=== PATIENT | male | born 1945 | race Hispanic/Latino ===

== ENCOUNTER 2022-09-05 12:35 | Inpatient (IN) | payer OTHER, MEDICARE ==
[2022-09-05] MEDS ORDERED: fentaNYL 50 mcg/mL 1 mL Vial ONE (13:00)
[2022-09-05 14:51] LABS: #Monocytes 0.8 thou/uL (0.11-0.59); #Neutrophils 13.9 thou/uL (1.40-6.50); %Eosinophils 0.3 % (0.0-10.0); %Lymphocytes 6.5 % (21.0-51.0); %Monocytes 5.1 % (0.0-10.0); %Neutrophils 88.2 % (42.0-75.0); Hemoglobin 12.4 g/dL (14.0-18.0); Mean Corpuscular Hemoglobin 31.7 pg (27.0-31.0); Mean Corpuscular Volume 95.8 fl (78.0-98.0); Mean Platelet Volume 8.3 fL (7.4-10.4); Platelet Count 224 10x3/uL (130-400); RBC Distribution Width 12.2 % (11.5-14.5); Red Blood Cell (RBC) Count 3.92 mill/uL (4.70-6.10); White Blood Cell (WBC) Count 15.7 10x3/uL (4.8-10.8)
[2022-09-05 14:56] LABS: Anion Gap 15 mmol/L (10-20); BUN (Urea Nitrogen) 16 mg/dL (8.4-25.7); Calc. Creatinine Clearance 0 mL/min (70-130); Calcium 9.1 mg/dL (7.8-10.44); Carbon Dioxide 22 mmol/L (23-31); Chloride 105 mmol/L (98-107); Estimated GFR 77; Glucose 229 mg/dL (83-110); Potassium 4.1 mmol/L (3.5-5.1); Sodium 138 mmol/L (136-145)
[2022-09-05] MEDS ORDERED: Dextrose 50% Abboject 50 ML SYRINGE SLOW IVP PRN (16:05)
[2022-09-05] MEDS ORDERED: Ondansetron PF 4 MG/2 ML Vial IVP PRN (16:05)
[2022-09-05] MEDS ORDERED: Ipratropium/Albuterol 3 ML NEB NEB PRN (16:05)
[2022-09-05] MEDS ORDERED: Dextrose 5% in Water 1,000 ML IV PRN (16:05)
[2022-09-05] MEDS ORDERED: CEFAZOLIN 2 GM in Sodium Chloride 0.9% 100 ML IVPB SCH (16:15)
[2022-09-05] MEDS ORDERED: traMADol HCl 50 MG TAB PO PRN (16:37)
[2022-09-05 18:08] VITALS: BMI 23.0
[2022-09-05] MEDS: Cyclobenzaprine 10 MG TAB PO PRN (18:11)
[2022-09-05] MEDS: Sodium Chloride 0.9% 1,000 ML IV SCH (18:11)
[2022-09-05] MEDS: traMADol HCl 50 MG TAB PO SCH ×2 (18:11→23:17)
[2022-09-05] MEDS: Insulin Glargine 30 UNITS/0.3 ML VIAL SC SCH (21:17)
[2022-09-05] MEDS: Famotidine/PF 20 mg/2ml Vial SLOW IVP SCH (21:17)
[2022-09-05] MEDS: Senokot S 8.6-50 MG TAB PO SCH (21:17)
[2022-09-05] MEDS: Acetaminophen 325 MG TAB PO SCH (23:17)
[2022-09-06] MEDS: Sodium Chloride 0.9% 1,000 ML IV SCH (01:15)
[2022-09-06] MEDS: traMADol HCl 50 MG TAB PO SCH ×2 (05:46→11:38)
[2022-09-06] MEDS: Acetaminophen 325 MG TAB PO SCH ×4 (05:46→23:30)
[2022-09-06 08:01] LABS: #Lymphocytes 2.2 thou/uL (1.20-3.40); #Monocytes 1.1 thou/uL (0.11-0.59); #Neutrophils 8.7 thou/uL (1.40-6.50); %Basophils 0.4 % (0.0-1.0); %Eosinophils 0.2 % (0.0-10.0); %Lymphocytes 18.4 % (21.0-51.0); %Monocytes 8.8 % (0.0-10.0); %Neutrophils 72.2 % (42.0-75.0); Hemoglobin 10.3 g/dL (14.0-18.0); Mean Corpuscular HGB CONC 31.6 g/dL (32.0-36.0); Mean Corpuscular Hemoglobin 30.8 pg (27.0-31.0); Mean Corpuscular Volume 97.2 fl (78.0-98.0); Platelet Count 206 10x3/uL (130-400); RBC Distribution Width 12.3 % (11.5-14.5); Red Blood Cell (RBC) Count 3.34 mill/uL (4.70-6.10)
[2022-09-06 08:17] LABS: INR-International Normal Ratio 1.1; PTT 27.5 sec (22.9-36.1); Prothrombin Time 15.1 sec (12.0-14.7)
[2022-09-06 08:20] LABS: Phosphorus 2.9 mg/dL (2.3-4.7)
[2022-09-06 08:22] LABS: Anion Gap 13 mmol/L (10-20); BUN (Urea Nitrogen) 16 mg/dL (8.4-25.7); Calc. Creatinine Clearance 78 mL/min (70-130); Calcium 8.8 mg/dL (7.8-10.44); Carbon Dioxide 20 mmol/L (23-31); Chloride 107 mmol/L (98-107); Estimated GFR 90; Glucose 172 mg/dL (83-110); Magnesium 1.9 mg/dL (1.6-2.6); Potassium 3.9 mmol/L (3.5-5.1); Sodium 136 mmol/L (136-145)
[2022-09-06] MEDS: Famotidine/PF 20 mg/2ml Vial SLOW IVP SCH ×2 (08:47→21:41)
[2022-09-06] MEDS: hydrALAZINE 20 MG/ML VIAL SLOW IVP PRN (08:47)
[2022-09-06] MEDS: Multivitamin W/ Minerals 1 TAB PO SCH (08:53)
[2022-09-06] MEDS: Lisinopril 10 MG TAB PO SCH ×2 (08:53→21:42)
[2022-09-06] MEDS: Insulin Glargine 30 UNITS/0.3 ML VIAL SC SCH ×2 (08:53→21:41)
[2022-09-06] MEDS: Polyethylene Glycol 3350 17 GM Packet PO SCH (08:53)
[2022-09-06] MEDS: Senokot S 8.6-50 MG TAB PO SCH ×2 (08:53→21:41)
[2022-09-06] MEDS ORDERED: Acetaminophen/Codeine 30-300mg Tablet PO PRN ×2 (09:39→12:06)
[2022-09-06] MEDS ORDERED: Sodium Chloride 0.9% 100 ML ONE (12:47)
[2022-09-06] MEDS ORDERED: CEFAZOLIN 2 GM VIAL ONE (12:47)
[2022-09-06] MEDS ORDERED: fentaNYL PF 100 MCG/2 ML SYRINGE ONE (13:54)
[2022-09-06] MEDS ORDERED: Dexamethasone 20 MG/5 ML VIAL ONE (14:05)
[2022-09-06] MEDS ORDERED: Lidocaine 1% PF 5 ML VIAL ONE (14:05)
[2022-09-06] MEDS ORDERED: Esmolol 100 MG/10 ML VIAL ONE (14:05)
[2022-09-06] MEDS ORDERED: Rocuronium Bromide 10 MG/ML (10ML VIAL) ONE (14:05)
[2022-09-06] MEDS ORDERED: PROPOFOL 200 MG/20 ML VIAL ONE (14:05)
[2022-09-06] MEDS ORDERED: Ondansetron PF 4 MG/2 ML Vial ONE (14:05)
[2022-09-06] MEDS ORDERED: SUGAMMADEX SODIUM 200 MG/2 ML VIAL ONE (14:38)
[2022-09-06] MEDS ORDERED: Ketorolac Tromethamine 30 MG/ML VIAL IVP PRN (14:42)
[2022-09-06] MEDS ORDERED: Promethazine HCl 25 MG/ML VIAL IM PRN (14:42)
[2022-09-06] MEDS ORDERED: Ondansetron HCl/PF 4 MG/2 ML Vial IVP PRN (14:42)
[2022-09-06] MEDS ORDERED: HYDROmorphone 2 MG/ML VIAL SLOW IVP PRN (14:42)
[2022-09-06] MEDS ORDERED: Meperidine HCl/PF 25 MG/ML VIAL SLOW IVP PRN (14:42)
[2022-09-06] MEDS ORDERED: HYDROmorphone 0.5 MG/0.5 ML SYRINGE ONE (15:07)
[2022-09-06] MEDS: Insulin Regular 300 UNITS/3 ML VIAL SC PRN ×2 (17:43→21:48)
[2022-09-06] MEDS: Acetaminophen/Codeine 30-300mg Tablet PO SCH ×2 (17:44→23:30)
[2022-09-06] MEDS ORDERED: Acetaminophen 500 MG TAB PO SCH ×2 (18:00)
[2022-09-06] MEDS: Cyclobenzaprine 10 MG TAB PO PRN (21:39)
[2022-09-06] MEDS: Clindamycin/D5W 900 MG in Premix Bag 1 BAG IVPB SCH (21:42)
[2022-09-06 21:50] LABS: Glucose 239 mg/dL (83-110)
[2022-09-07] MEDS: Clindamycin/D5W 900 MG in Premix Bag 1 BAG IVPB SCH (05:37)
[2022-09-07] MEDS: Acetaminophen 325 MG TAB PO SCH ×4 (05:37→23:25)
[2022-09-07] MEDS: Acetaminophen/Codeine 30-300mg Tablet PO SCH ×4 (05:38→23:24)
[2022-09-07 06:21] LABS: #Lymphocytes 2.1 thou/uL (1.20-3.40); #Monocytes 1.1 thou/uL (0.11-0.59); #Neutrophils 10.6 thou/uL (1.40-6.50); %Basophils 0.1 % (0.0-1.0); %Eosinophils 0.1 % (0.0-10.0); %Lymphocytes 14.9 % (21.0-51.0); %Monocytes 8.3 % (0.0-10.0); %Neutrophils 76.7 % (42.0-75.0); Hemoglobin 9.8 g/dL (14.0-18.0); Mean Corpuscular Hemoglobin 31.6 pg (27.0-31.0); Mean Platelet Volume 8.2 fL (7.4-10.4); Platelet Count 187 10x3/uL (130-400); RBC Distribution Width 12.5 % (11.5-14.5); Red Blood Cell (RBC) Count 3.09 mill/uL (4.70-6.10); White Blood Cell (WBC) Count 13.8 10x3/uL (4.8-10.8)
[2022-09-07 06:48] LABS: Anion Gap 15 mmol/L (10-20); BUN (Urea Nitrogen) 9 mg/dL (8.4-25.7); Calc. Creatinine Clearance 77 mL/min (70-130); Calcium 9.2 mg/dL (7.8-10.44); Carbon Dioxide 20 mmol/L (23-31); Chloride 105 mmol/L (98-107); Estimated GFR 89; Glucose 152 mg/dL (83-110); Phosphorus 3.2 mg/dL (2.3-4.7); Sodium 136 mmol/L (136-145)
[2022-09-07] MEDS ORDERED: Ferrous Sulfate 325 MG TAB PO SCH (08:00)
[2022-09-07] MEDS ORDERED: Morphine 2 MG/ML VIAL SLOW IVP PRN (09:31)
[2022-09-07] MEDS: Insulin Glargine 30 UNITS/0.3 ML VIAL SC SCH ×2 (09:40→21:22)
[2022-09-07] MEDS: Lisinopril 10 MG TAB PO SCH ×2 (09:42→21:17)
[2022-09-07] MEDS: Polyethylene Glycol 3350 17 GM Packet PO SCH (09:42)
[2022-09-07] MEDS: Aspirin 81 mg Enteric Coated Tablet PO SCH (09:44)
[2022-09-07] MEDS: Senokot S 8.6-50 MG TAB PO SCH ×2 (09:44→21:17)
[2022-09-07] MEDS: Ascorbic Acid 500 mg Chewable Tablet PO SCH ×2 (09:44→21:16)
[2022-09-07] MEDS: Famotidine 20 MG TAB PO SCH ×2 (09:44→21:17)
[2022-09-07] MEDS: Multivitamin W/ Minerals 1 TAB PO SCH (09:44)
[2022-09-07] MEDS: Ferrous Sulfate 325 MG TAB PO SCH ×2 (09:44→21:17)
[2022-09-07] MEDS ORDERED: Ketorolac Tromethamine 30 MG/ML VIAL IVP SCH (09:45)
[2022-09-07] MEDS: Insulin Regular 300 UNITS/3 ML VIAL SC PRN ×3 (12:50→21:22)
[2022-09-07] MEDS: Gabapentin 100 MG CAP PO SCH ×2 (15:34→21:17)
[2022-09-07] MEDS: Ketorolac Tromethamine 30 MG/ML VIAL IVP SCH ×2 (15:37→21:23)
[2022-09-08] MEDS: Acetaminophen/Codeine 30-300mg Tablet PO SCH ×4 (05:04→23:08)
[2022-09-08] MEDS: Ketorolac Tromethamine 30 MG/ML VIAL IVP SCH ×4 (05:04→20:41)
[2022-09-08] MEDS: Acetaminophen 325 MG TAB PO SCH ×4 (05:05→23:09)
[2022-09-08] MEDS: Insulin Regular 300 UNITS/3 ML VIAL SC PRN ×2 (05:15→15:15)
[2022-09-08 07:04] LABS: #Eosinphils 0.1 thou/uL (0.0-0.7); #Lymphocytes 1.4 thou/uL (1.20-3.40); #Monocytes 0.7 thou/uL (0.11-0.59); #Neutrophils 6.4 thou/uL (1.40-6.50); %Basophils 0.4 % (0.0-1.0); %Eosinophils 1.7 % (0.0-10.0); %Lymphocytes 16.5 % (21.0-51.0); %Monocytes 7.8 % (0.0-10.0); %Neutrophils 73.6 % (42.0-75.0); Hemoglobin 8.7 g/dL (14.0-18.0); Mean Corpuscular HGB CONC 34.4 g/dL (32.0-36.0); Mean Corpuscular Hemoglobin 33.9 pg (27.0-31.0); Mean Corpuscular Volume 98.6 fl (78.0-98.0); Mean Platelet Volume 8.4 fL (7.4-10.4); Platelet Count 150 10x3/uL (130-400); RBC Distribution Width 12.7 % (11.5-14.5); Red Blood Cell (RBC) Count 2.56 mill/uL (4.70-6.10); White Blood Cell (WBC) Count 8.6 10x3/uL (4.8-10.8)
[2022-09-08] MEDS: Gabapentin 100 MG CAP PO SCH ×3 (09:15→20:40)
[2022-09-08] MEDS: Lisinopril 10 MG TAB PO SCH ×2 (09:22→20:39)
[2022-09-08] MEDS: Senokot S 8.6-50 MG TAB PO SCH ×2 (09:22→20:40)
[2022-09-08] MEDS: Famotidine 20 MG TAB PO SCH ×2 (09:23→20:42)
[2022-09-08] MEDS: Insulin Glargine 30 UNITS/0.3 ML VIAL SC SCH ×2 (09:23→20:38)
[2022-09-08] MEDS: Ferrous Sulfate 325 MG TAB PO SCH ×2 (09:23→20:39)
[2022-09-08] MEDS: Multivitamin W/ Minerals 1 TAB PO SCH (09:23)
[2022-09-08] MEDS: Aspirin 81 mg Enteric Coated Tablet PO SCH (09:23)
[2022-09-08] MEDS: Ascorbic Acid 500 mg Chewable Tablet PO SCH ×2 (09:23→20:38)
[2022-09-08] MEDS: Polyethylene Glycol 3350 17 GM Packet PO SCH (09:28)
[2022-09-09] MEDS: hydrALAZINE 20 MG/ML VIAL SLOW IVP PRN (04:12)
[2022-09-09] MEDS: Cyclobenzaprine 10 MG TAB PO PRN (05:44)
[2022-09-09] MEDS: Acetaminophen/Codeine 30-300mg Tablet PO SCH ×3 (05:44→18:26)
[2022-09-09] MEDS: Acetaminophen 325 MG TAB PO SCH ×3 (05:45→18:27)
[2022-09-09] MEDS: Ketorolac Tromethamine 30 MG/ML VIAL IVP SCH ×2 (05:45→08:59)
[2022-09-09] MEDS: Insulin Regular 300 UNITS/3 ML VIAL SC PRN ×4 (07:10→21:12)
[2022-09-09] MEDS: Senokot S 8.6-50 MG TAB PO SCH ×2 (08:58→21:02)
[2022-09-09] MEDS: Ascorbic Acid 500 mg Chewable Tablet PO SCH ×2 (08:58→20:57)
[2022-09-09] MEDS: Aspirin 81 mg Enteric Coated Tablet PO SCH (08:58)
[2022-09-09] MEDS: Ferrous Sulfate 325 MG TAB PO SCH ×2 (08:58→21:01)
[2022-09-09] MEDS: Multivitamin W/ Minerals 1 TAB PO SCH (08:58)
[2022-09-09] MEDS: Clopidogrel Bisulfate 75 MG TAB PO SCH (08:59)
[2022-09-09] MEDS: Lisinopril 20 MG TAB PO SCH ×2 (08:59→20:58)
[2022-09-09] MEDS: Polyethylene Glycol 3350 17 GM Packet PO SCH (08:59)
[2022-09-09] MEDS: Insulin Glargine 30 UNITS/0.3 ML VIAL SC SCH ×2 (09:00→20:57)
[2022-09-09] MEDS: Gabapentin 100 MG CAP PO SCH ×3 (09:01→20:57)
[2022-09-09] MEDS: Famotidine 20 MG TAB PO SCH ×3 (09:01→20:58)
[2022-09-09] MEDS: Atorvastatin Calcium 10 MG TAB PO SCH (20:57)
[2022-09-10] MEDS: Acetaminophen/Codeine 30-300mg Tablet PO SCH ×5 (00:14→23:16)
[2022-09-10] MEDS: Acetaminophen 325 MG TAB PO SCH ×5 (00:14→23:16)
[2022-09-10] MEDS: Insulin Regular 300 UNITS/3 ML VIAL SC PRN ×3 (06:10→21:02)
[2022-09-10] MEDS: Cyclobenzaprine 10 MG TAB PO PRN (06:10)
[2022-09-10] MEDS: Clopidogrel Bisulfate 75 MG TAB PO SCH (08:37)
[2022-09-10] MEDS: Ferrous Sulfate 325 MG TAB PO SCH ×2 (08:37→20:58)
[2022-09-10] MEDS: Lisinopril 20 MG TAB PO SCH ×2 (08:37→21:01)
[2022-09-10] MEDS: Polyethylene Glycol 3350 17 GM Packet PO SCH (08:37)
[2022-09-10] MEDS: Ascorbic Acid 500 mg Chewable Tablet PO SCH ×2 (08:37→20:57)
[2022-09-10] MEDS: Senokot S 8.6-50 MG TAB PO SCH ×3 (08:37→22:17)
[2022-09-10] MEDS: Multivitamin W/ Minerals 1 TAB PO SCH (08:37)
[2022-09-10] MEDS: Famotidine 20 MG TAB PO SCH ×2 (08:37→20:58)
[2022-09-10] MEDS: Aspirin 81 mg Enteric Coated Tablet PO SCH (08:37)
[2022-09-10] MEDS: Gabapentin 100 MG CAP PO SCH ×3 (08:38→20:58)
[2022-09-10] MEDS: Insulin Glargine 30 UNITS/0.3 ML VIAL SC SCH ×2 (08:38→21:01)
[2022-09-10] MEDS: metFORMIN 500 MG TAB PO SCH (17:36)
[2022-09-10] MEDS: Atorvastatin Calcium 10 MG TAB PO SCH (20:57)
[2022-09-11] MEDS: Insulin Regular 300 UNITS/3 ML VIAL SC PRN ×3 (05:36→20:38)
[2022-09-11] MEDS: Acetaminophen 325 MG TAB PO SCH ×4 (05:36→23:22)
[2022-09-11] MEDS: Acetaminophen/Codeine 30-300mg Tablet PO SCH ×4 (05:36→23:22)
[2022-09-11] MEDS: Lisinopril 20 MG TAB PO SCH ×2 (10:31→20:37)
[2022-09-11] MEDS: Aspirin 81 mg Enteric Coated Tablet PO SCH (10:34)
[2022-09-11] MEDS: Ascorbic Acid 500 mg Chewable Tablet PO SCH ×2 (10:34→20:32)
[2022-09-11] MEDS: Famotidine 20 MG TAB PO SCH ×2 (10:34→20:33)
[2022-09-11] MEDS: Gabapentin 100 MG CAP PO SCH ×3 (10:34→20:32)
[2022-09-11] MEDS: Clopidogrel Bisulfate 75 MG TAB PO SCH (10:35)
[2022-09-11] MEDS: metFORMIN 500 MG TAB PO SCH ×2 (10:35→16:33)
[2022-09-11] MEDS: Multivitamin W/ Minerals 1 TAB PO SCH (10:36)
[2022-09-11] MEDS: Ferrous Sulfate 325 MG TAB PO SCH ×2 (10:37→20:33)
[2022-09-11] MEDS: Insulin Glargine 30 UNITS/0.3 ML VIAL SC SCH (10:43)
[2022-09-11] MEDS: glipiZIDE 10 MG TAB PO SCH (20:32)
[2022-09-11] MEDS: Atorvastatin Calcium 10 MG TAB PO SCH (20:32)
[2022-09-11] MEDS: Senokot S 8.6-50 MG TAB PO SCH ×2 (20:33→21:14)
[2022-09-11] MEDS: Polyethylene Glycol 3350 17 GM Packet PO SCH (21:14)
[2022-09-12] MEDS: Acetaminophen 325 MG TAB PO SCH ×3 (05:46→17:23)
[2022-09-12] MEDS: Acetaminophen/Codeine 30-300mg Tablet PO SCH ×3 (05:46→17:24)
[2022-09-12] MEDS: Ascorbic Acid 500 mg Chewable Tablet PO SCH ×2 (08:56→20:49)
[2022-09-12] MEDS: Lisinopril 20 MG TAB PO SCH ×2 (08:56→20:48)
[2022-09-12] MEDS: Multivitamin W/ Minerals 1 TAB PO SCH (08:56)
[2022-09-12] MEDS: Clopidogrel Bisulfate 75 MG TAB PO SCH (08:57)
[2022-09-12] MEDS: Aspirin 81 mg Enteric Coated Tablet PO SCH (08:57)
[2022-09-12] MEDS: Pioglitazone HCl 45 MG TAB PO SCH (08:57)
[2022-09-12] MEDS: Ferrous Sulfate 325 MG TAB PO SCH ×2 (08:57→20:47)
[2022-09-12] MEDS: glipiZIDE 10 MG TAB PO SCH ×2 (08:57→20:48)
[2022-09-12] MEDS: metFORMIN 500 MG TAB PO SCH ×2 (08:57→17:22)
[2022-09-12] MEDS: Gabapentin 100 MG CAP PO SCH ×3 (08:57→20:48)
[2022-09-12] MEDS: Polyethylene Glycol 3350 17 GM Packet PO SCH (09:10)
[2022-09-12] MEDS: Senokot S 8.6-50 MG TAB PO SCH ×2 (09:10→22:24)
[2022-09-12] MEDS: Insulin Regular 300 UNITS/3 ML VIAL SC PRN (17:33)
[2022-09-12] MEDS: Atorvastatin Calcium 10 MG TAB PO SCH (20:47)
[2022-09-13] MEDS: Acetaminophen 325 MG TAB PO SCH ×5 (00:23→23:39)
[2022-09-13] MEDS: Acetaminophen/Codeine 30-300mg Tablet PO SCH ×5 (00:23→23:39)
[2022-09-13 05:48] LABS: #Eosinphils 0.3 thou/uL (0.0-0.7); #Lymphocytes 1.8 thou/uL (1.20-3.40); #Monocytes 1.1 thou/uL (0.11-0.59); #Neutrophils 6.7 thou/uL (1.40-6.50); %Basophils 0.3 % (0.0-1.0); %Lymphocytes 18.2 % (21.0-51.0); %Monocytes 11.2 % (0.0-10.0); %Neutrophils 67.3 % (42.0-75.0); Hemoglobin 8.8 g/dL (14.0-18.0); Mean Corpuscular HGB CONC 32.8 g/dL (32.0-36.0); Mean Corpuscular Hemoglobin 32.4 pg (27.0-31.0); Mean Corpuscular Volume 98.8 fl (78.0-98.0); Mean Platelet Volume 7.8 fL (7.4-10.4); Platelet Count 271 10x3/uL (130-400); RBC Distribution Width 14.5 % (11.5-14.5); Red Blood Cell (RBC) Count 2.72 mill/uL (4.70-6.10); White Blood Cell (WBC) Count 9.9 10x3/uL (4.8-10.8)
[2022-09-13] MEDS: Senokot S 8.6-50 MG TAB PO SCH ×2 (08:38→08:39)
[2022-09-13] MEDS: Pioglitazone HCl 45 MG TAB PO SCH (08:38)
[2022-09-13] MEDS: Ascorbic Acid 500 mg Chewable Tablet PO SCH ×2 (08:38→21:24)
[2022-09-13] MEDS: metFORMIN 500 MG TAB PO SCH ×2 (08:38→16:02)
[2022-09-13] MEDS: Clopidogrel Bisulfate 75 MG TAB PO SCH (08:39)
[2022-09-13] MEDS: Multivitamin W/ Minerals 1 TAB PO SCH (08:39)
[2022-09-13] MEDS: Ferrous Sulfate 325 MG TAB PO SCH ×2 (08:39→21:24)
[2022-09-13] MEDS: Aspirin 81 mg Enteric Coated Tablet PO SCH (08:39)
[2022-09-13] MEDS: Gabapentin 100 MG CAP PO SCH ×3 (08:40→21:24)
[2022-09-13] MEDS: Lisinopril 20 MG TAB PO SCH ×2 (08:40→21:24)
[2022-09-13] MEDS: Polyethylene Glycol 3350 17 GM Packet PO SCH (08:40)
[2022-09-13] MEDS: glipiZIDE 10 MG TAB PO SCH ×2 (08:40→21:24)
[2022-09-13] MEDS ORDERED: Scopolamine 1.5 mg/72 hour Patch TD SCH (12:00)
[2022-09-13] MEDS: Insulin Regular 300 UNITS/3 ML VIAL SC PRN ×2 (16:04→21:50)
[2022-09-13] MEDS: Atorvastatin Calcium 10 MG TAB PO SCH (21:25)
[2022-09-14] MEDS: Acetaminophen/Codeine 30-300mg Tablet PO SCH ×4 (05:24→23:47)
[2022-09-14] MEDS: Acetaminophen 325 MG TAB PO SCH ×4 (05:25→23:47)
[2022-09-14] MEDS: Insulin Regular 300 UNITS/3 ML VIAL SC PRN ×4 (06:38→21:50)
[2022-09-14] MEDS: metFORMIN 500 MG TAB PO SCH ×2 (09:18→17:50)
[2022-09-14] MEDS: Ferrous Sulfate 325 MG TAB PO SCH ×2 (09:19→21:01)
[2022-09-14] MEDS: glipiZIDE 10 MG TAB PO SCH ×2 (09:19→21:01)
[2022-09-14] MEDS: Lisinopril 20 MG TAB PO SCH ×2 (09:20→21:01)
[2022-09-14] MEDS: Senokot S 8.6-50 MG TAB PO SCH ×2 (09:20→21:02)
[2022-09-14] MEDS: Aspirin 81 mg Enteric Coated Tablet PO SCH (09:20)
[2022-09-14] MEDS: Clopidogrel Bisulfate 75 MG TAB PO SCH (09:22)
[2022-09-14] MEDS: Ascorbic Acid 500 mg Chewable Tablet PO SCH ×2 (09:22→21:02)
[2022-09-14] MEDS: Gabapentin 100 MG CAP PO SCH ×3 (09:22→21:01)
[2022-09-14] MEDS: Pioglitazone HCl 45 MG TAB PO SCH (09:23)
[2022-09-14] MEDS: Polyethylene Glycol 3350 17 GM Packet PO SCH (09:24)
[2022-09-14] MEDS: Multivitamin W/ Minerals 1 TAB PO SCH (10:44)
[2022-09-14] MEDS: Atorvastatin Calcium 10 MG TAB PO SCH (21:01)
[2022-09-15] MEDS: Acetaminophen 325 MG TAB PO SCH ×2 (05:41→14:41)
[2022-09-15] MEDS: Acetaminophen/Codeine 30-300mg Tablet PO SCH ×2 (05:42→14:41)
[2022-09-15] MEDS: Insulin Regular 300 UNITS/3 ML VIAL SC PRN (05:43)
[2022-09-15 06:22] VITALS: TEMP 97.8
[2022-09-15] MEDS: Pioglitazone HCl 45 MG TAB PO SCH (08:01)
[2022-09-15] MEDS: Multivitamin W/ Minerals 1 TAB PO SCH (08:02)
[2022-09-15] MEDS: Lisinopril 20 MG TAB PO SCH (08:02)
[2022-09-15] MEDS: Ascorbic Acid 500 mg Chewable Tablet PO SCH (08:03)
[2022-09-15] MEDS: Aspirin 81 mg Enteric Coated Tablet PO SCH (08:03)
[2022-09-15] MEDS: metFORMIN 500 MG TAB PO SCH (08:03)
[2022-09-15] MEDS: Ferrous Sulfate 325 MG TAB PO SCH (08:03)
[2022-09-15] MEDS: Gabapentin 100 MG CAP PO SCH ×2 (08:03→14:40)
[2022-09-15] MEDS: Clopidogrel Bisulfate 75 MG TAB PO SCH (08:03)
[2022-09-15] MEDS: glipiZIDE 10 MG TAB PO SCH (08:16)
[2022-09-15] MEDS ORDERED: NOREPINEPHRINE 8 MG/250 ML-D5W 250 ML ONE (12:48)
[2022-09-15] MEDS ORDERED: Atropine Sulfate 1 mg/10 ml Syringe ONE (12:52)
[2022-09-15] MEDS ORDERED: EPINEPHrine 1 MG/10 ML Abboject SYRINGE ONE ×2 (12:52→12:59)
[2022-09-15 12:57] LABS: Actual Bicarbonate (HCO3a) 16.8 mEq/L (22-28); Base Excess (BEa) -11.4 mEq/L (-2.0 to +3.0); CO2 Tension 49.5 mmHg (35.0-45.0); Calcium, Ionized (arterial) 1.11 mmol/L (1.12-1.30); Carboxyhemoglobin (COHb) 0.3 gm% (0.0-3.0); Hematocrit-ABG 25 % (42.0-52.0); Hemoglobin (Hb) 8.4 g/dL (14.0-18.0); Potassium - ABG Lab 3.96 mmol/L (3.70-5.30)
[2022-09-15 12:58] LABS: O2 Tension (PaO2), arterial 19.5 mmHg (> 70.0); Puncture Site RFA; pH, Arterial 7.149 (7.35-7.45)
[2022-09-15 12:59] LABS: ALV-art Gradient 631.625 mmHg (0-20)
[2022-09-15] MEDS ORDERED: Calcium Chloride 1 GM/10 ML Abboject SYRINGE ONE (12:59)
[2022-09-15] MEDS ORDERED: Sodium Bicarb 50 MEQ/50 ML VIAL ONE (12:59)
[2022-09-15 13:23] LABS: Hemoglobin 9.3 g/dL (14.0-18.0); Mean Corpuscular HGB CONC 33.4 g/dL (32.0-36.0); Mean Corpuscular Hemoglobin 33.6 pg (27.0-31.0); Mean Platelet Volume 7.7 fL (7.4-10.4); Platelet Count 293 10x3/uL (130-400); RBC Distribution Width 15.2 % (11.5-14.5); Red Blood Cell (RBC) Count 2.76 mill/uL (4.70-6.10)
[2022-09-15 13:38] LABS: Band 6 % (5-11); Burr Cells SLIGHT = 2-5 cells (100X) (0-1/hpf); Lymphocytes 26 % (21-51); MDiff Complete? YES; Macrocytosis SLIGHT = 6-15 cells (100X) (0-5/hpf); Monocytes 5 % (0-10); Neutrophil 63 % (42-75); Nucleated RBC 9 % (0); Platelet Morphology Comment Appears Adequate; Polychromasia SLIGHT = 2-3 cells (100X) (0-2/hpf); White Blood Cell (WBC) Count 13.1 10x3/uL (4.8-10.8)
[2022-09-15 13:45] VITALS: BP 53/29
[2022-09-15 13:48] LABS: ALT (SGPT) 159 U/L (8-55); AST (SGOT) 176 U/L (5-34); Albumin 3.1 g/dL (3.4-4.8); Alkaline Phosphatase 111 U/L (40-110); Anion Gap 26 mmol/L (10-20); BUN (Urea Nitrogen) 37 mg/dL (8.4-25.7); Calc. Creatinine Clearance 41 mL/min (70-130); Calcium 8.2 mg/dL (7.8-10.44); Carbon Dioxide 12 mmol/L (23-31); Chloride 102 mmol/L (98-107); Estimated GFR 46; Globulin 3.1 g/dL (2.4-3.5); Glucose 399 mg/dL (83-110); Potassium 3.6 mmol/L (3.5-5.1); Protein, Total 6.2 g/dL (5.8-8.1); Sodium 136 mmol/L (136-145)
[2022-09-15 14:21] LABS: CKMB 4.5 ng/mL (0-6.6)
[2022-09-15] MEDS: Senokot S 8.6-50 MG TAB PO SCH (14:40)
[2022-09-15] MEDS: Polyethylene Glycol 3350 17 GM Packet PO SCH (14:40)
[2022-09-18] MEDS ORDERED: Non-Formulary Item 1 EACH (Dulaglutide [Trulicity] 0.75 MG/0.5 ML Pen.Injctr) SQ SCH (09:00)
== END 2022-09-15 18:22 | disposition expired | DRG 480 ==
LOC: ERS 12:35 → SJJU 16:05 → CCU 09-15 12:46
PROVIDERS: ADMIT Specialist; ATTEND Specialist
PROC: 0QS704Z Reposition Left Upper Femur with Internal Fixation Device, Open Approach (ICD-10-PCS; principal; 2022-09-06)
PROC: 4A033R1 Measurement of Arterial Saturation, Peripheral, Percutaneous Approach (ICD-10-PCS; 2022-09-15)
PROC: 3E033XZ Introduction of Vasopressor into Peripheral Vein, Percutaneous Approach (ICD-10-PCS; 2022-09-15)
PROC: 5A12012 Performance of Cardiac Output, Single, Manual (ICD-10-PCS; 2022-09-15)
PROC: 5A1935Z Respiratory Ventilation, Less than 24 Consecutive Hours (ICD-10-PCS; 2022-09-15)
PROC: 0BH17EZ Insertion of Endotracheal Airway into Trachea, Via Natural or Artificial Opening (ICD-10-PCS; 2022-09-15)
DX: S72.142A Displaced intertrochanteric fracture of left femur, initial encounter for closed fracture (principal); I21.9 Acute myocardial infarction, unspecified; D62 Acute posthemorrhagic anemia; E11.9 Type 2 diabetes mellitus without complications; E78.00 Pure hypercholesterolemia, unspecified; I10 Essential (primary) hypertension; F32.A Depression, unspecified; I25.10 Atherosclerotic heart disease of native coronary artery without angina pectoris; E78.5 Hyperlipidemia, unspecified; W19.XXXA Unspecified fall, initial encounter; I46.9 Cardiac arrest, cause unspecified; Z86.73 Personal history of transient ischemic attack (TIA), and cerebral infarction without residual deficits; Y92.89 Other specified places as the place of occurrence of the external cause; Z88.0 Allergy status to penicillin
CPT/HCPCS: 36415; 36416; 36600; 70450; 71045; 72125; 72170; 80048; 80053; 82553; 82805; 83735; 84100; 84484; 85025; 85610; 85730; 86850; 86900; 86901; 93005; 93010; 94002; 96374; C1713; J0171; J0360; J1100; J1170; J1815; J1885; J2405; J2704; J3010; J3490; J7050; S0028